=== PATIENT | female | born 1970 | race Caucasian/White ===

== ENCOUNTER 2021-06-11 11:12 | Emergency (ER) | payer OTHER ==
[2021-06-11 11:28] VITALS: BP 136/86; PULSE 67; TEMP 98.2; BMI 24.7
[2021-06-11] MEDS ORDERED: KETOROLAC TROMETHAMINE 30 MG/1 ML VIAL IM ONE (11:36)
[2021-06-11] MEDS ORDERED: ACETAMINOPHEN 325 MG TABLET (FP) PO ONE (11:36)
[2021-06-11] MEDS ORDERED: diazePAM 2 MG TABLET PO ONE (11:37)
[2021-06-11] MEDS ORDERED: diazePAM 2 MG TABLET ONE (12:14)
[2021-06-11] MEDS ORDERED: ACETAMINOPHEN 325 MG TABLET (FP) ONE (12:14)
[2021-06-11] MEDS ORDERED: KETOROLAC TROMETHAMINE 30 MG/1 ML VIAL ONE (12:14)
== END 2021-06-11 14:21 | disposition home or self-care (01) ==
LOC: FER 11:12
PROC: 3E023GC Introduction of Other Therapeutic Substance into Muscle, Percutaneous Approach (ICD-10-PCS; principal; 2021-06-11)
DX: S39.012A Strain of muscle, fascia and tendon of lower back, initial encounter (principal); X50.0XXA Overexertion from strenuous movement or load, initial encounter
CPT/HCPCS: 72100-TC-FY; 96372; 99284-25

== ENCOUNTER 2023-06-13 11:44 | Emergency (ER) | payer OTHER ==
[2023-06-13 11:57] VITALS: BMI 22.1
[2023-06-13] MEDS ORDERED: ACETAMINOPHEN 325 MG TABLET (FP) PO ONE (11:59)
[2023-06-13] MEDS ORDERED: ACETAMINOPHEN 325 MG TABLET (FP) ONE (12:23)
[2023-06-13 12:28] LABS: HEMATOCRIT 41.2 % (32.4-45.2); HEMOGLOBIN 13.9 G/dL (10.7-15.3); MCH 31.4 pg (25.7-33.7); MCHC 33.7 g/dl (32.0-36.0); MEAN CELL VOLUME 93.2 fl (80-96); MEAN PLT VOLUME 8.5 fl (7.5-11.1); PLATELET COUNT 274.2 10^3/uL (134-434); RBC 4.42 10^6/uL (3.60-5.2); RDW 13.7 % (11.6-15.6); WHITE BLOOD COUNT 5.9 10^3/uL (4.0-10.8)
[2023-06-13] MEDS ORDERED: ALBUTEROL SO4 0.083% IH SOL 2.5 MG/3 ML VIAL.NEB. NEB ONE (13:07)
[2023-06-13] MEDS ORDERED: ALBUTEROL SO4 2.5/IPRATROPIUM 0.5 INH SOL 3 ML VIAL.NEB. NEB ONE (13:27)
[2023-06-13 13:55] LABS: PLATELET ESTIMATE ADEQUATE
[2023-06-13] MEDS ORDERED: KETOROLAC TROMETHAMINE 15 MG/ML VIAL IVPUSH ONE (14:01)
[2023-06-13] MEDS ORDERED: KETOROLAC TROMETHAMINE 15 MG/ML VIAL ONE (14:24)
[2023-06-13 14:27] LABS: CHLORIDE 108 mmol/L (98-107); POTASSIUM 4.3 mmol/L (3.5-5.1); SODIUM 141 mmol/L (136-145)
[2023-06-13 14:29] LABS: ALBUMIN 3.9 g/dl (3.4-5.0); ANION GAP 6 mmol/L (4-13); BLOOD UREA NITROGEN 10.8 mg/dL (7-18); CALCIUM 9.6 mg/dL (8.5-10.1); CO2 27 mmol/L (21-32); GLUCOSE,RANDOM 81 mg/dL (74-106)
[2023-06-13 14:32] LABS: CREATININE 0.7 mg/dL (0.55-1.3); SGPT/ALT 16 U/L (13-61)
[2023-06-13 14:33] LABS: SGOT/AST 15 U/L (15-37)
[2023-06-13 14:34] LABS: BILIRUBIN,TOTAL 0.4 mg/dL (0.2-1); TOT PROT 7.5 g/dl (6.4-8.2)
[2023-06-13 14:35] LABS: ALK PHOS 103 U/L (45-117)
[2023-06-13 14:49] VITALS: BP 100/57; PULSE 81; RESP 16; TEMP 98.7
== END 2023-06-13 15:00 | disposition home or self-care (01) ==
LOC: FER 11:44
PROC: 3E0333Z Introduction of Anti-inflammatory into Peripheral Vein, Percutaneous Approach (ICD-10-PCS; principal; 2023-06-13)
PROC: 3E0F7GC Introduction of Other Therapeutic Substance into Respiratory Tract, Via Natural or Artificial Opening (ICD-10-PCS; 2023-06-13)
DX: R07.9 Chest pain, unspecified (principal); R05.3 Chronic cough; Z20.822 Contact with and (suspected) exposure to COVID-19
CPT/HCPCS: 0241U-QW; 36415; 71046-TC-FY; 80053; 83735; 84484; 85027; 93005; 99285-25

== ENCOUNTER 2024-03-05 16:14 | Emergency (ER) | payer OTHER ==
[2024-03-05 16:42] VITALS: BP 111/69; PULSE 82; RESP 18; TEMP 98.8; BMI 23.0
[2024-03-05] MEDS ORDERED: ACETAMINOPHEN 325 MG TABLET (FP) ONE (18:33)
[2024-03-05] MEDS ORDERED: IBUPROFEN 400 MG TABLET (FP) PO ONE (18:33)
[2024-03-05] MEDS: IBUPROFEN 400 MG TABLET (FP) PO ONE (18:37)
[2024-03-05] MEDS: ACETAMINOPHEN 325 MG TABLET (FP) PO ONE (18:37)
== END 2024-03-05 19:35 | disposition home or self-care (01) ==
LOC: FER 16:14
DX: S79.911A Unspecified injury of right hip, initial encounter (principal); M25.512 Pain in left shoulder; M54.50 Low back pain, unspecified; R91.1 Solitary pulmonary nodule; M54.6 Pain in thoracic spine; W20.8XXA Other cause of strike by thrown, projected or falling object, initial encounter
CPT/HCPCS: 72128-TC; 72131-TC; 72192-TC; 73030-TC-LT-FY; 99284-25